=== PATIENT | female | born 1990 | race Caucasian/White ===

== ENCOUNTER 2024-12-05 00:57 | Day surgery (SDC) | payer OTHER, SELFPAY ==
[2024-11-28 10:56] VITALS: BMI 26.9
--- NOTE | 2024-11-28 11:05 | PC.NURSE ---
Report to the Outpatient Waiting Room, entrance under the green pavilion located off [facility], at time _1000am on date _12/05/24 . Planned Procedure Time: __1200pm .? Time changes happen often and if your time is changed the preop area will call you the afternoon before. - You and your visitor will be asked to self-screen and do not enter if you have any COVID symptoms. Please call surgeon if you need to reschedule. - A mask is optional within the hospital at this time. Patients may have clear liquids (water, carbonated beverages, clear teas, apple juice) until 3 hours prior to surgery with a maximum of 20 ounces. - No food from midnight until time of surgery and no smoking, or chewing tobacco (or any form of nicotine). No chewing gum, candy or mints. (0900am) Take only the following medications with a SIP of water on the morning of surgery: ____None DO NOT STOP ANY OF YOUR OTHER PRESCRIPTION MEDICATIONS PRIOR TO SURGERY EXCEPT THE FOLLOWING Hold all vitamins and supplements for 3 days per anesthesiologist. Medications to discontinue per physician None Date to take last dose__None Please no make-up, nail korean, hairspray, perfume, deodorant, or body powder the day of surgery.? No jewelry (including any body piercings) or valuables the day of surgery, leave them at home.? Please take a shower or bath the night before, or the morning of, surgery with an antibacterial soap.? Wear comfortable, loose fitting clothing.? - Jewelry must be removed prior to entering the operating room.? Rings and piercings that are not removed may be cut off. - The hospital will not accept responsibility for valuables.? - Please leave all valuables, including medications, at home the day of surgery. If you are going home after surgery, a licensed feeder driver must drive you home.? - NO public transportation without another adult if you receive anesthesia. - We recommend that an adult stay with you for 24 hours following discharge. - We also recommend that you do not drive, make important decision, drink alcoholic beverages, or take any drugs that were not prescribed by your health care provider for at least 24 hours after your discharge time. Follow any additional instructions given to you from your surgeon. Pt cannot come prior to get Testing done ahead, so will get DOS due to scheduling and pt lives far away- pt understands the risk . Telephone instructions given to __Patient and asked if any additional questions and then verbalized understanding. Patient advised to call surgeon office or pre surgery nurse liaison [phone] if any additional questions.
--- OUTSIDE RECORDS SUMMARY | 2024-12-05 01:04 | XMS_ITS | Data Portability ---
Author Organization [facility], [address] ([place]) Address [address] [place] [address] Care Team Providers Care Chemical Process Engineer Name Role Phone JUAN DANIEL OROZCO Primary Care Provider [phone] LEONIDAS OROZCO Referring Provider ESAU ARROYO Director Of Contracts Assessment Encounter Date Assessment Date Assessment LastModified by Organization Details LastModified Time 05/30/2024 05/30/2024 I had a long discussion with Naheed. I reviewed her lab work over the past few years and we trended her LFTs. Her transaminases were elevated back in 2019 and they had improved somewhat in the middle and now at the most recent check they are slightly increased from baseline again. The cause of her LFT increase is unclear. She had a follow-up FibroScan today, which again shows normal numbers. She does not drink heavily and she has actually lost weight and her BMI is quite good. The cause of her LFT elevation is unclear. We talked about possible medications, herbal drugs and even personal care products that could possibly be causing this. She is going to work on ensuring that there is no such exposure to her that could cause elevated LFTs. We will recheck numbers in about a months time and if they continue to go up, we might do some repeat testing to rule out autoimmune liver disease. The patient voiced understanding and was in agreement with the plan. [email or web address] Not available 05/31/2024 11:01:20 08/02/2024 08/02/2024 Flu test negative today, but her son has confirmed influenza A currently. Her symptoms just hit last night. Discussed Tamiflu as a strategy for decreasing course of illness and prevention. She would like to proceed. Will plan treatment dosing as my suspicion for flu A is high. F/u if any worsening / trouble breathing/ high fevers, etc. Patient voices understanding and agreement with the plan. [email or web address] Not available 08/02/2024 16:58:33 10/17/2024 10/17/2024 Elevated liver enzymes of unknown etiology - Initially identified in 2019 on insurance screening labs. GI on-board since then, has had normal FibroScan & lab work ups. Her BMI is 25.9. After her last visit she had some repeat testing for autoimmune liver disease which again came back normal. No known toxin exposures. Her only routine medication is her Mirena. She rarely drinks alcohol. We will arrange hepatology consult at [facility] for a second opinion regarding potential diagnoses/ add'l work up and guidance on future monitoring. Night sweats - She describes nightly drenching night sweats for several years. She mentions now just in case this correlates with any of her underlying conditions (liver and chronic thyroid goiter). I recommended we do a CBC, CRP, HIV, A1c tests. To help more definitively rule out thryoid dysfunction, will repeat a TSH along with a free and total T4, T3. Overweight - Phentermine renewed at 30 mg dose. Next steps pending the results of the above workup and hepatology referral. Patient voices understanding and agreement with the plan. [email or web address] Not available 10/18/2024 18:15:45 Plan of Treatment Reminders Order Date Submit Date Provider Last Modified By Organization Details Last Modified Time Details Appointments None recorded. Lab CBC w/ auto diff 2024 025 [facility], [address] [place] [address], [id number], 15:11:49 TSH, ultra-sensi tive, serum 2024 025 [facility], [address] [place] [address], [id number], 15:38:14 T4, free, serum 2024 025 [facility], [address] [place] [address], [id number], 5 15:38:16 C-reactive protein, quantitativ e, serum or plasma 2024 025 [facility], [address] [place] [address], [id number], 16:18:58 HIV 1+2 Ab + HIV 1 p24 Ag, panel, IA, serum or plasma 2024 025 [facility], [address] [place] [address], 45386, 16:02:33 hemoglobin A1c + average glucose, QN, blood 2024 025 [facility], [address] [place] [address], 44192, 15:32:28 T4, total, serum 2024 025 [facility], [address] [place] [address], 71649, 17:03:51 T3, total, serum 2024 025 [facility], [address] [place] [address], 40989, 09:52:37 CMP, serum or plasma 2024 025 [facility], [address] [place] [address], [id number], 5 15:49:24 influenza (A+B) RNA, qualitative , PCR [email or web address] [place] [address] Laboratory, [address] [place] [address], [id number], 5 11:42:30 Referral hepatologis t referral 2024 025 [email or web address] Not available 19:31:40 Procedures None recorded. Surgeries None recorded. Imaging None recorded. Medication Orders phentermine 30 mg capsule 2024 025 [email or web address] [id number], [address] [place], [address], 18:10:37 Tamiflu 75 mg capsule 2024 025 [id number], [address] [place], [address], 18:38:24 Patient TargetsNo targets recorded. Patient InstructionsNo instructions recorded. 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 Referral for Li francisco enzymes level above reference range Referring Physician: Kayy Guadarrama, Family Medicine, Encounter Date: 10/17/2024 Results Created Date Observation Date Name Description Value Unit Range Abnormal Flag Note LastModifiedBy Organization Detail LastModifiedTime 08/02/19 25 08/02/2024 influ arcelia (A+B) RNA, quali tativ e, PCR influenza A and B Not Available [facility] [address] [place] [address], [id number], 08/02/2024 16:59:21 08/02/19 25 08/02/2024 influ arcelia (A+B) RNA, quali tativ e, PCR influenza A NEGATI VE negati ve Not Available [facility] [address] [place] [address], [id number], 08/02/2024 16:59:21 08/02/19 25 08/02/2024 influ arcelia (A+B) RNA, quali tativ e, PCR influenza B NEGATI VE negati ve Influ arcelia A/B assay perfo rmed on the ID NOW Instr ument via rapid molec ular in vitro diagn ostic appro ach utili zing an isoth ermal nucle ic acid ampli ficat ion techn ique for the quali tativ e detec tion and discr imina tion of influ arcelia A and B. It is inten ded for use as an aid in the diffe renti al diagn osis of influ arcelia A and B viral infec tions in human s in conju nctio n with clini buddy and epide miolo gical risk facto rs. The assay is not inten ded to detec t the prese nce of influ arcelia C virus . Rapid influ arcelia diagn ostic testi ng (RIDT ) is not inten ded to be used as the sole deter minin g facto r for Influ arcelia diagn osis. Negat lyla resul ts do not precl ude infec tion with influ arcelia virus and shoul d not be the sole basis of a patie nt treat ment decis ion. False negat lyla resul ts may occur if a speci men is impro perly colle cted, trans porte d/casas dled or inade quate level s of virus es are prese nt in the speci men. At a low frequ ency, clini buddy sampl es can conta in inhib itors that may gener ate inval id resul ts. Site to site inval id rates may vary and repea t testi ng shoul d be consi dered at the clini cia discr etion . Not Available [facility] [address] [place] [address], [id number], 08/02/2024 16:59:21 08/07/19 25 08/08/2024 hepat ic funct ion panel , serum liver function panel Not Available [facility] [address] [place] [address], [id number], 08/08/2024 14:56:03 08/07/19 25 08/08/2024 hepat ic funct ion panel , serum albumin 4.6 g/dL 3.5-5. 3 Not Available [facility] [address] [place] [address], 56588, 08/08/2024 14:56:03 08/07/19 25 08/08/2024 hepat ic funct ion panel , serum direct bilirubin 0.2 mg/dL 0.1-0. 5 Not Available [facility] [address] [place] [address], 75824, 08/08/2024 14:56:03 08/07/1908/08/2024 hepat ic funct ion panel , serum indirect bilirubin 0.4 mg/dL 0.1-0. 6 Not Available [facility] [address] [place] [address], 45239, 08/08/2024 14:56:03 08/07/19 25 08/08/2024 hepat ic funct ion panel , serum total bilirubin 0.6 mg/dL 0.2-1. 2 Not Available [facility] [address] [place] [address], 16495, 08/08/2024 14:56:03 08/07/19 25 08/08/2024 hepat ic funct ion panel , serum ALP 86 U/L 44 - 127 Not Available [facility] [address] [place] [address], 06902, 08/08/2024 14:56:03 08/07/19 25 08/08/2024 hepat ic funct ion panel , serum AST (SGOT) 103 U/L 10-40 high Not Available [facility] [address] [place] [address], 23877, 08/08/2024 14:56:03 08/07/19 25 08/08/2024 hepat ic funct ion panel , serum ALT (SGPT) 157 U/L 8-35 high Not Available [facility] [address] [place] [address], 63981, 08/08/2024 14:56:03 08/07/19 25 08/08/2024 hepat ic funct ion panel , serum total protein 6.9 g/dL 6.4-8. 3 Not Available [facility] [address] [place] [address], 09424, 08/08/2024 14:56:03 08/21/19 25 08/21/2024 gamma -glut amyl trans feras e (ggt) , serum GGT Not Available [facility] [address] [place] [address], 38582, 08/21/2024 15:47:01 08/21/19 25 08/21/2024 gamma -glut amyl trans feras e (ggt) , serum GGT 47 U/L <7-50 Not Available [facility] [address] [place] [address], 20478, 08/21/2024 15:47:01 08/21/19 25 08/21/2024 hepat ic funct ion panel , serum liver function panel Not Available [facility] [address] [place] [address], 96704, 08/21/2024 15:49:46 08/21/19 25 08/21/2024 hepat ic funct ion panel , serum albumin 4.6 g/dL 3.5-5. 3 Not Available [facility] [address] [place] [address], 07391, 08/21/2024 15:49:46 08/21/19 25 08/21/2024 hepat ic funct ion panel , serum direct bilirubin 0.2 mg/dL 0.1-0. 5 Not Available [facility] [address] [place] [address], 80839, 08/21/2024 15:49:46 08/21/1908/21/2024 hepat ic funct ion panel , serum indirect bilirubin 0.3 mg/dL 0.1-0. 6 Not Available [facility] [address] [place] [address], 73925, 08/21/2024 15:49:46 08/21/19 25 08/21/2024 hepat ic funct ion panel , serum total bilirubin 0.5 mg/dL 0.2-1. 2 Not Available [facility] [address] [place] [address], 03346, 08/21/2024 15:49:46 08/21/19 25 08/21/2024 hepat ic funct ion panel , serum ALP 73 U/L 44 - 127 Not Available [facility] [address] [place] [address], 05786, 08/21/2024 15:49:46 08/21/19 25 08/21/2024 hepat ic funct ion panel , serum AST (SGOT) 45 U/L 10-40 high Not Available [facility] [address] [place] [address], 35143, 08/21/2024 15:49:46 08/21/19 25 08/21/2024 hepat ic funct ion panel , serum ALT (SGPT) 68 U/L 8-35 high Not Available [facility] [address] [place] [address], 01787, 08/21/2024 15:49:46 08/21/19 25 08/21/2024 hepat ic funct ion panel , serum total protein 6.7 g/dL 6.4-8. 3 Not Available [facility] [address] [place] [address], 38615, 08/21/2024 15:49:46 08/21/19 25 08/22/2024 alpha -1-an titry psin (aat) , QN, serum nxqii-0-sufn trypsin 121 mg/dL 100-18 8 Not Available [facility] [address] [place] [address], 01476, 08/22/2024 13:39:27 08/21/1908/22/2024 cerul oplas min, serum ceruloplasmi n 20.1 mg/dL 19.0-3 9.0 Not Available [facility] [address] [place] [address], 34775, 08/22/2024 13:39:29 08/21/19 25 08/22/2024 actin michel h muscl e IgG Ab, quant , serum smooth muscle (actin) Ab 9 units 0-19 Negat lyla 0 - 19 Weak posit lyla 20 - 30 Moder ate to stron g posit lyla >30 . Actin Antib odies are found in 52-85 % of patie nts with autoi mmune hepat itis or chron ic activ e hepat itis and in 22% of patie nts with prima ry bilia ry cirrh osis. Not Available [facility] [address] [place] [address], 22894, 08/22/2024 14:39:01 08/21/1908/22/2024 mitoc hondr ia Ab, QN, serum mitochondria M2 IgG Ab <20.0 units 0.0-20 .0 Negat lyla 0.0 - 20.0 Equiv ocal 20.1 - 24.9 Posit lyla >24.9 . Mitoc hondr ial (M2) Antib odies are found in 90-96 % of patie nts with prima ry bilia ry cirrh osis. Not Available [facility] [address] [place] [address], [id number], 08/22/2024 14:39:04 08/21/19 25 08/23/2024 JESSEE (anti nucle ar antib odies ) scree n, serum JESSEE screen NEGATI VE negati ve Perfo rmed by Bio-R ad enzym e immun oassa y Not Available [facility] [address] [place] [address], 89670, 08/23/2024 15:00:47 10/20/1910/19/2024 CBC w/ auto diff CBC with differential Not Available [facility] [address] [place] [address], 77877, 10/19/2024 15:11:49 10/20/1910/19/2024 CBC w/ auto diff WBC 3.3 K/uL 3.8-11 .2 low Not Available [facility] [address] [place] [address], 03150, 10/19/2024 15:11:49 10/20/1910/19/2024 CBC w/ auto diff RBC 4.46 M/uL 3.92-5 .10 Not Available [facility] [address] [place] [address], 09148, 10/19/2024 15:11:49 10/20/1910/19/2024 CBC w/ auto diff HGB 13.2 g/dL 11.8-1 5.3 Not Available [facility] [address] [place] [address], 87577, 10/19/2024 15:11:49 10/20/1910/19/2024 CBC w/ auto diff HCT 37.6 % 36.5-4 4.8 Not Available [facility] [address] [place] [address], 45050, 10/19/2024 15:11:49 10/20/1910/19/2024 CBC w/ auto diff MCV 84.3 fL 80.0-9 9.0 Not Available [facility] [address] [place] [address], 50917, 10/19/2024 15:11:49 10/20/1910/19/2024 CBC w/ auto diff MCH 29.6 pg 25.5-3 3.6 Not Available [facility] [address] [place] [address], 83079, 10/19/2024 15:11:49 10/20/1910/19/2024 CBC w/ auto diff MCHC 35.1 g/dL 32.0-3 6.0 Not Available [facility] [address] [place] [address], 51102, 10/19/2024 15:11:49 10/20/1910/19/2024 CBC w/ auto diff RDW-SD 36.2 fL 35.1 - 46.3 Not Available [facility] [address] [place] [address], 48264, 10/19/2024 15:11:49 10/20/19 25 10/19/2024 CBC w/ auto diff plt 275 K/uL 130-40 0 Not Available [facility] [address] [place] [address], 87297, 10/19/2024 15:11:49 10/20/1910/19/2024 CBC w/ auto diff MPV 9.1 fL 9.3-12 .8 low Not Available [facility] [address] [place] [address], 69542, 10/19/2024 15:11:49 10/20/19 25 10/19/2024 CBC w/ auto diff kane% 39.1 % not estab Not Available [facility] [address] [place] [address], 82036, 10/19/2024 15:11:49 10/20/1910/19/2024 CBC w/ auto diff lym% 53.0 % not estab Not Available [facility] [address] [place] [address], 46724, 10/19/2024 15:11:49 10/20/1910/19/2024 CBC w/ auto diff mono% 5.2 % not estab Not Available [facility] [address] [place] [address], 65511, 10/19/2024 15:11:49 10/20/1910/19/2024 CBC w/ auto diff eos% 2.1 % not estab Not Available [facility] [address] [place] [address], [id number], 10/19/2024 15:11:49 10/20/1910/19/2024 CBC w/ auto diff baso% 0.3 % not estab Not Available [facility] [address] [place] [address], 44257, 10/19/2024 15:11:49 10/20/1910/19/2024 CBC w/ auto diff abs kane 1.3 K/uL 1.8-7. 5 low Not Available [facility] [address] [place] [address], 53666, 10/19/2024 15:11:49 10/20/1910/19/2024 CBC w/ auto diff abs lym 1.8 K/uL 1.1-3. 3 Not Available [facility] [address] [place] [address], 62630, 10/19/2024 15:11:49 10/20/1910/19/2024 CBC w/ auto diff abs mono 0.2 K/uL 0.1-1. 0 Not Available [facility] [address] [place] [address], 29632, 10/19/2024 15:11:49 10/20/1910/19/2024 CBC w/ auto diff abs eos 0.1 K/uL 0.0-0. 7 Not Available [facility] [address] [place] [address], 43709, 10/19/2024 15:11:49 10/20/1910/19/2024 CBC w/ auto diff abs baso 0.0 K/uL 0.0-0. 2 Not Available [facility] [address] [place] [address], 04650, 10/19/2024 15:11:49 10/20/1910/19/2024 CBC w/ auto diff imm. gran % 0.3 % 0-5 Not Available [facility] [address] [place] [address], 26176, 10/19/2024 15:11:49 10/20/1910/19/2024 CBC w/ auto diff NRBC % 0.0 % 0.0-0. 2 Not Available [facility] [address] [place] [address], 44064, 10/19/2024 15:11:49 10/20/1910/19/2024 hemog lobin A1c + avera ge gluco se, QN, blood hemoglobin A1C Not Available [facility] [address] [place] [address], 39765, 10/19/2024 15:32:28 10/20/1910/19/2024 hemog lobin A1c + avera ge gluco se, QN, blood HGB A1C 4.8 %_A1C 4.3 - 5.6 Not Available [facility] [address] [place] [address], 20688, 10/19/2024 15:32:28 10/20/1910/19/2024 hemog lobin A1c + avera ge gluco se, QN, blood estimated average glucose 91 mg/dL Not Available [facility] [address] [place] [address], 99112, 10/19/2024 15:32:28 10/20/1910/19/2024 TSH, ultra -sens itive , serum TSH3 1.474 uIU/m L .340-5 .600 Not Available [facility] [address] [place] [address], 49847, 10/19/2024 15:38:13 10/20/1910/19/2024 T4, free, serum free T4 1.20 NG/dL 0.58-1 .64 Speci mens that conta in high level s of bioti n may cause false ly high Free T4 resul ts. Not Available [facility] [address] [place] [address], 90195, 10/19/2024 15:38:16 10/20/1910/19/2024 CMP, serum or plasm a comp. met. panel Not Available [facility] [address] [place] [address], 44761, 10/19/2024 15:49:24 10/20/1910/19/2024 CMP, serum or plasm a sodium 138 mmol/ L 136-14 6 Not Available [facility] [address] [place] [address], 35980, 10/19/2024 15:49:24 10/20/1910/19/2024 CMP, serum or plasm a potassium 4.3 mmol/ L 3.5-5. 1 Not Available [facility] [address] [place] [address], 56871, 10/19/2024 15:49:24 10/20/1910/19/2024 CMP, serum or plasm a chloride 105 mmol/ L 98-110 Not Available [facility] [address] [place] [address], 78418, 10/19/2024 15:49:24 10/20/1910/19/2024 CMP, serum or plasm a CO2 28 mEq/L 20-32 Not Available [facility] [address] [place] [address], 20432, 10/19/2024 15:49:24 10/20/1910/19/2024 CMP, serum or plasm a anion gap 9 mmol/ L 10-22 low Not Available [facility] [address] [place] [address], 03443, 10/19/2024 15:49:24 10/20/1910/19/2024 CMP, serum or plasm a glucose 108 mg/dL 70-100 high Not Available [facility] [address] [place] [address], 86166, 10/19/2024 15:49:24 10/20/1910/19/2024 CMP, serum or plasm a calcium 9.2 mg/dL 8.4-10 .4 Not Available [facility] [address] [place] [address], 18582, 10/19/2024 15:49:24 10/20/1910/19/2024 CMP, serum or plasm a total protein 6.9 g/dL 6.4-8. 3 Not Available [facility] [address] [place] [address], 06777, 10/19/2024 15:49:24 10/20/1910/19/2024 CMP, serum or plasm a albumin 4.4 g/dL 3.5-5. 3 Not Available [facility] [address] [place] [address], 23088, 10/19/2024 15:49:24 10/20/19 25 10/19/2024 CMP, serum or plasm a ALP 70 U/L 44 - 127 Not Available [facility] [address] [place] [address], 37590, 10/19/2024 15:49:24 10/20/1910/19/2024 CMP, serum or plasm a AST (SGOT) 43 U/L 10-40 high Not Available [facility] [address] [place] [address], 36988, 10/19/2024 15:49:24 10/20/1910/19/2024 CMP, serum or plasm a total bilirubin 0.9 mg/dL 0.2-1. 2 Not Available [facility] [address] [place] [address], 75601, 10/19/2024 15:49:24 10/20/1910/19/2024 CMP, serum or plasm a ALT (SGPT) 79 U/L 8-35 high Not Available [facility] [address] [place] [address], 97379, 10/19/2024 15:49:24 10/20/1910/19/2024 CMP, serum or plasm a BUN 11 mg/dL 7-21 Not Available [facility] [address] [place] [address], 87686, 10/19/2024 15:49:24 10/20/1910/19/2024 CMP, serum or plasm a creatinine 0.8 mg/dL 0.7-1. 3 Not Available [facility] [address] [place] [address], 25438, 10/19/2024 15:49:24 10/20/1910/19/2024 CMP, serum or plasm a CKD-epi GFR 98 eGFR was calcu lated using the 2020 CKD-E PI equat ion. (Steam Engineer lisa Kidne y Disea se has an eGFR less than 60 mL/mi n/1.7 3mm for a perio d of three month s or more. ) This calcu latio n has not been valid ated for patie nt ages <18 or >90 years old. Not Available [facility] [address] [place] [address], 56380, 10/19/2024 15:49:24 10/20/1910/19/2024 HIV 1+2 Ab + HIV 1 p24 Ag, panel , IA, serum or plasm a HIV Ag/Ab 1-2 combo NONREA CTIVE nonrea ctive Not Available [facility] [address] [place] [address], 95951, 10/19/2024 16:02:33 10/20/1910/19/2024 C-geoffrey ctive prote in, quant itati ve, serum or plasm a CRP Not Available [facility] [address] [place] [address], 32171, 10/19/2024 16:18:58 10/20/1910/19/2024 C-geoffrey ctive prote in, quant itati ve, serum or plasm a CRP <0.5 mg/dL <0.4-0 .5 Not Available [facility] [address] [place] [address], 58319, 10/19/2024 16:18:58 10/20/19 25 10/20/2024 T3, total , serum total T3 119 NG/dL 71-180 Not Available [facility] [address] [place] [address], 13790, 10/20/2024 09:52:37 10/20/1910/20/2024 T4, total , serum T4, total 8.0 ug/dL 6.1-12 .2 Due to possi ble low value s in pregn ant patie nts and those on contr ol medic ation , it is recom radha d that these patie nts be teste d also for TSH to evalu ate thyro id metab olic statu s Not Available [facility] [address] [place] [address], 79798, 10/20/2024 17:03:50 11/07/1911/06/2024 CBC w/ auto diff CBC with differential Not Available [facility] [address] [place] [address], 95816, 11/06/2024 15:25:13 11/07/19 25 11/06/2024 CBC w/ auto diff WBC 4.4 K/uL 3.8-11 .2 Not Available [facility] [address] [place] [address], 49042, 11/06/2024 15:25:13 11/07/19 25 11/06/2024 CBC w/ auto diff RBC 4.19 M/uL 3.92-5 .10 Not Available [facility] [address] [place] [address], 54656, 11/06/2024 15:25:13 11/07/19 25 11/06/2024 CBC w/ auto diff HGB 12.7 g/dL 11.8-1 5.3 Not Available [facility] [address] [place] [address], 18812, 11/06/2024 15:25:13 11/07/19 25 11/06/2024 CBC w/ auto diff HCT 35.6 % 36.5-4 4.8 low Not Available [facility] [address] [place] [address], 82729, 11/06/2024 15:25:13 11/07/19 25 11/06/2024 CBC w/ auto diff MCV 85.0 fL 80.0-9 9.0 Not Available [facility] [address] [place] [address], 59475, 11/06/2024 15:25:13 11/07/19 25 11/06/2024 CBC w/ auto diff MCH 30.3 pg 25.5-3 3.6 Not Available [facility] [address] [place] [address], 54608, 11/06/2024 15:25:13 11/07/19 25 11/06/2024 CBC w/ auto diff MCHC 35.7 g/dL 32.0-3 6.0 Not Available [facility] [address] [place] [address], 92706, 11/06/2024 15:25:13 11/07/19 25 11/06/2024 CBC w/ auto diff RDW-SD 36.9 fL 35.1 - 46.3 Not Available [facility] [address] [place] [address], 76566, 11/06/2024 15:25:13 11/07/19 25 11/06/2024 CBC w/ auto diff plt 242 K/uL 130-40 0 Not Available [facility] [address] [place] [address], 15144, 11/06/2024 15:25:13 11/07/19 25 11/06/2024 CBC w/ auto diff MPV 9.4 fL 9.3-12 .8 Not Available [facility] [address] [place] [address], 74957, 11/06/2024 15:25:13 11/07/19 25 11/06/2024 CBC w/ auto diff kane% 38.0 % not estab Not Available [facility] [address] [place] [address], [id number], 11/06/2024 15:25:13 11/07/19 25 11/06/2024 CBC w/ auto diff lym% 51.2 % not estab Not Available [facility] [address] [place] [address], [id number], 11/06/2024 15:25:13 11/07/19 25 11/06/2024 CBC w/ auto diff mono% 7.9 % not estab Not Available [facility] [address] [place] [address], [id number], 11/06/2024 15:25:13 11/07/19 25 11/06/2024 CBC w/ auto diff eos% 2.5 % not estab Not Available [facility] [address] [place] [address], [id number], 11/06/2024 15:25:13 11/07/19 25 11/06/2024 CBC w/ auto diff baso% 0.2 % not estab Not Available [facility] [address] [place] [address], [id number], 11/06/2024 15:25:13 11/07/19 25 11/06/2024 CBC w/ auto diff abs kane 1.7 K/uL 1.8-7. 5 low Not Available [facility] [address] [place] [address], [id number], 11/06/2024 15:25:13 11/07/19 25 11/06/2024 CBC w/ auto diff abs lym 2.3 K/uL 1.1-3. 3 Not Available [facility] [address] [place] [address], [id number], 11/06/2024 15:25:13 11/07/19 25 11/06/2024 CBC w/ auto diff abs mono 0.4 K/uL 0.1-1. 0 Not Available [facility] [address] [place] [address], [id number], 11/06/2024 15:25:13 11/07/19 25 11/06/2024 CBC w/ auto diff abs eos 0.1 K/uL 0.0-0. 7 Not Available [facility] [address] [place] [address], [id number], 11/06/2024 15:25:13 11/07/19 25 11/06/2024 CBC w/ auto diff abs baso 0.0 K/uL 0.0-0. 2 Not Available [facility] [address] [place] [address], [id number], 11/06/2024 15:25:13 11/07/19 25 11/06/2024 CBC w/ auto diff imm. gran % 0.2 % 0-5 Not Available [facility] Onl y - [facility] [address] [place] [address], [id number], 11/06/2024 15:25:13 11/07/19 25 11/06/2024 CBC w/ auto diff NRBC % 0.0 % 0.0-0. 2 Not Available [facility] [address] [place] [address], [id number], 11/06/2024 15:25:13 08/08/19 25 08/03/2024 US, thyro id No observ ation record ed. [facility] - Radiology [address] [place], [address], 08/08/2024 10:21:57 Result Notes None recorded. Problems Name Problem SNOMED Code Status Onset Date Resolution Date Notes Provider Name and Address Organization Details Recorded Time Acute COVID-19 [id number] Completed 10/10/2024 home+ test 01/28/24 Kayy Guadarrama, POWER ENGINEER, HUMAN RELATIONS PROFESSOR [address] [place] [address], [phone], [place] [facility] 13:00:01 Non-toxi c multinod ular goiter 94464545 Active R. nodule by US '. ENT reviewed f/u US (largely stable), impressi on likely NOT parathyr oid nodule, rec'd repeat US in 1 yr. Stable on US , plan repeat 1yr. Juan Daniel Orozco MD [address] [place] [address], [phone], [facility] 5 06:44:15 Liver enzymes level above referenc e range [id number] Active insuranc e screeing labs; ALT 114, AST 75 w/ nmL GGT/ALP, US, Hep panel, CBC. GI impressi on probable fatty liver (fibrosc an unremark able). Mild elevatio n thereaft er. Fibrosca n nmL , and expanded liver labs (per GI) nmL . plan second opinion at [facility] (schedul ed ) Kayy Guadarrama APRN, HUMAN RELATIONS PROFESSOR [address] [place] [address], [phone], [facility] 5 16:10:03 Abnormal cervical Papanico laou smear 683631812 Active 2023 Colpo 06/2013 (for LSIL), then nmL Pap 02/2014. f/b Gyne Dr. Anne at [facility]. Kayy Guadarrama APRN, HUMAN RELATIONS PROFESSOR [address] [place] [address], [phone], [facility] 4 10:37:53 Recurren t herpes simplex labialis 616028724 Active 10/07/15 tx valcyclo vir as needed Juan Daniel Orozco MD [address] [place] [address], [phone], [facility] 5 06:40:23 Contrace ption care manageme nt Active f/b Gyne in [facility] Mirena IUD placed . Juan Daniel Orozco MD [address] [place], [phone], [facility] 5 06:50:25 Night sweats 23144528 Active 2024 low WBC on labs, f/b nmL repeat . Neg HIV test, thyroid testing nmL. Kayy Guadarrama APRN, HUMAN RELATIONS PROFESSOR [address] [place] [address], [phone], [facility] 5 16:10:42 Overweig ht 019732944 Active 2024 start phenterm ine with intermit tent success. resume and increase to 30 mg dose. aKyy Guadarrama APRN, HUMAN RELATIONS PROFESSOR [address] [place] [address], [phone] 3, [facility] 5 15:10:38 Problem Notes Documentation Provider Name and Address Organization Details Recorded Time [facility] [address] [place] [phone] Naheed Champagne 34yo F 1990 #[id number] 05/31/2024 Swetha Orozco MD, Naheed Champagne was seen in our office today 05/30/2024, and a copy of that evaluation is enclosed. Thank you for allowing us to participate in the care of your patient. Please contact us with any questions. Sincerely, Electronically Signed by: ESAU ARROYO MD Encounter Reason/DateNone recorded 05/30/2024 - 02:00PM - [address] BoardsProblemsReviewed Problems Herpes labialis - Onset: 02/07/2024 - 10/07/15 tx valcyclovir as needed Recurrent herpes simplex labialis - Onset: 05/01/2024 Non-toxic multinodular goiter - Onset: 02/06/2024 - R. nodule by US ', stable . Endocrine ([facility] Dr. Velasquez) rec'd repeat US & TSH in 1yr & f/u there if abnml / changing. nmL TSH . Pt declines US . nmL TSH, slight increase in nodule size on US. repeat US w/ increased (isthmus) nodule size & recommended FNA. Tentatively plan for repeat US in - (as recommended by ENT), lost to f/u until where in most nodules stable, new nodule at posterior thyroid, may be external to & abutting vs part of thyroid (parathyroid nodule or lymph node). ENT reviewed images, thinks likely NOT parathyroid nodule, rec'd repeat US in 1 yr. Obesity - Onset: 02/07/2024 - start phentermine (if covered by insurance, would trzn to GLP1). Steatosis of liver - Onset: 05/30/2024 Abnormal cervical Papanicolaou smear - Onset: 02/07/2024 - Colpo 06/2013 (for LSIL), then nmL Pap 02/2014. f/b Gyne Dr. Anne at [place]. Acute COVID-19 - home+ test 01/28/24 Liver enzymes level above reference range - Onset: 02/07/2024 - 09/19/18 insurance screeing labs; ALT 114, AST 75. NmL GGT/ALP. NmL RUQ US, Hep panel, CBC. Con't elevation on repeats indicating GI consult. GI impression probable fatty liver, but 2019 US / fibroscan unremarkable, as well as unremarkable liver lab w/u. s/p f/u w/ GI for ongoing elevated LFTs (AST 54, ALT 92). US stable, liver bx vs q 6 mo LFT offered by GI, pt opted for q 6 mo LFTs. Next due . Liver enzymes outside reference range - Onset: 05/31/2024 Allergies PENICILLINS: Anaphylaxis - Reaction: Throat Swelling; Comment: Annotations: PAM (PAZ TRANSITIONED)JUAN DANIEL 26Aug2014 3:07PM at time of tooth abscess, which confounds clarity of reaction (allergy vs primary abscess cause); ; Medications NameDate Source azithromycin 250 mg tabletTAKE 2 TABLETS BY MOUTH FOR 1 DAY THEN TAKE 1 TABLET BY MOUTH DAILY FOR 4 DAYS05/28/23 filled surescripts azithromycin 500 mg tabletTAKE 1 TABLET BY MOUTH ONCE DAILY FOR 5 DAYS04/19/23 filled surescripts fluticasone propionate 50 mcg/actuation nasal spray,suspensionSPRAY 2 SPRAYS INTO EACH NOSTRIL EVERY DAY08/08/23 filled surescripts ofloxacin 0.3 % eye dropsINSTILL 2 DROPS INTO AFFECTED EYE 4 TIMES A DAY FOR 5 DAYS11/20/23 filled surescripts phentermine 15 mg capsuleTAKE 1 CAPSULE BY MOUTH EVERY DAY IN THE MORNING BEFORE USRUFSIOD96/12/24 filled surescripts valACYclovir 1 gram tabletTake 2 tablet(s) every 12 hours by oral route for 1 day.05/01/24 filled surescripts Family History Mother - Malignant tumor of breast - Family history of malignant neoplasm Maternal Grandmother - Family history of malignant neoplasm Father - Diabetes mellitus Social HistorySubstance UseDo you or have you ever smoked tobacco?: Never smokerWhat is your level of alcohol consumption?: OccasionalHow many times per week do you consume alcohol?: 1-2 times per weekDo you use any illicit or recreational drugs?: NoWhat was the date of your most recent tobacco screening?: 05/30/2024Education and OccupationAre you currently employed?: 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 Due for removal 2017., Type: Chronic Identified By: JUAN DANIEL OROZCO Last Edited: 30 Aug 2014 10:03AM ICD9 Code: V45.51 Last Reviewed Date: 20140830 SnomedCode: [id number] ICD10 Code: Z97.5 Never a smoker, Type: Chronic Last Edited: 26 Aug 2014 2:55PM Last Reviewed Date: 20140826 SnomedCode: 642214258 Caffeine use-2 cups/glasses per day, Identified By: Kath Villasenor Last Edited: 06 Aug 2023 7:02PM ICD9 Code: V49.89 OnSet Date: 20230806 Last Reviewed Date: 20230806 SnomedCode: 1000585115 ICD10 Code: Z78.9 Consumes alcohol-How many drinks at a time? 2, How often? 1 time per week, Identified By: Kath Villasenor Last Edited: 06 Aug 2023 7:02PM ICD9 Code: V49.89 OnSet Date: 20230806 Last Reviewed Date: 20230806 SnomedCode: [id number] ICD10 Code: Z78.9 Does not exercise, Identified By: Kath Villasenor Last Edited: 06 Aug 2023 7:02PM ICD9 Code: V69.0 OnSet Date: 20230806 Last Reviewed Date: 20230806 SnomedCode: 020543231 ICD10 Code: Z72.3 IUD (intrauterine device) in place-Mirena IUD placed 2018 (by [facility])., Type: Chronic Identified By: JUAN DANIEL OROZCO Last Edited: 08 Aug 2023 4:59PM ICD9 Code: V45.51 Last Reviewed Date: 20230808 SnomedCode: 218528319 ICD10 Code: Z97.5 Never a smoker, Last Edited: 06 Aug 2023 7:02PM OnSet Date: 20230806 Last Reviewed Date: 20230806 SnomedCode: 808892649 No illicit drug use, Identified By: Health Note, ADPVendor Last Edited: 06 Aug 2023 7:02PM OnSet Date: 20230806 Last Reviewed Date: 20230806 SnomedCode: 949596170 Surgical HistoryNone recordedAdditional HistoryNone recordedHistory of Present IllnessNone recordedReview of SystemsNone recordedPhysical ExamNone recordedProcedure DocumentationSC Fibroscan:[place] Fibroscan Intake Ordering Physician: Dr. Arroyo Roof Mechanic Name: Dianelys Shannon Probe: M+ Clinical Information: NPO> 3 Hours? Yes Alcohol in the last 24 hours No Body Mass Index: 24.6 Lab Tests: AST:60 ALT:103 Tbili:0.6 Alk P:79 Platelets:286 Endoscopy Date: Colorectal Cancer Screening Up to Date? Adenomatus Polyps? Last colonoscopy date: Next colonoscopy date: Next EGD date: Findings: Fibrosis Assessment: Median Liver Stiffness Score: 3.3kPa IQR to Median Radio: 9% Liver Fat (Steatosis) Estimation: CAP of _163_ dB/m Impressions:Discussed with patient in the office, FibroScan numbers are normal Assessment/Plan1.Fatty fablpF23.0: Fatty (change of) liver, not elsewhere classified Return to Office Patient will return to the office as needed Kayy Guadarrama, POWER ENGINEER, HUMAN RELATIONS PROFESSOR [address] [place] [address], [phone], [place] [facility] 05/31/2024 11:42:53 [facility] [address] [place] [phone] Naheed Champagne 34yo F 1990 #[id number] 06/04/2024 Swetha Orozco MD, Naheed Champagne was seen in our office today 05/30/2024, and a copy of that evaluation is enclosed. Thank you for allowing us to participate in the care of your patient. Please contact us with any questions. Sincerely, Electronically Signed by: ESAU ARROYO MD Encounter Reason/Date Fibroscan/Fatty Liver 05/30/2024 - 02:30PM - [address] [facility] ([place])ProblemsReviewed Problems Herpes labialis - Onset: 02/07/2024 - 10/07/15 tx valcyclovir as needed Recurrent herpes simplex labialis - Onset: 05/01/2024 Non-toxic multinodular goiter - Onset: 02/06/2024 - R. nodule by US , stable . Endocrine ([facility] Dr. Velasquez) rec'd repeat US & TSH in 1yr & f/u there if abnml / changing. nmL TSH . Pt declines US . nmL TSH, slight increase in nodule size on US. repeat US w/ increased (isthmus) nodule size & recommended FNA. Tentatively plan for repeat US in - (as recommended by ENT), lost to f/u until where in most nodules stable, new nodule at posterior thyroid, may be external to & abutting vs part of thyroid (parathyroid nodule or lymph node). ENT reviewed images, thinks likely NOT parathyroid nodule, rec'd repeat US in 1 yr. Obesity - Onset: 02/07/2024 - start phentermine (if covered by insurance, would trzn to GLP1). Steatosis of liver - Onset: 05/30/2024 Abnormal cervical Papanicolaou smear - Onset: 02/07/2024 - Colpo 06/2013 (for LSIL), then nmL Pap 02/2014. f/b Gyne Dr. Anne at [place]. Acute COVID-19 - home+ test 01/28/24 Liver enzymes level above reference range - Onset: 02/07/2024 - 09/19/18 insurance screeing labs; ALT 114, AST 75. NmL GGT/ALP. NmL RUQ US, Hep panel, CBC. Con't elevation on repeats indicating GI consult. GI impression probable fatty liver, but 2019 US / fibroscan unremarkable, as well as unremarkable liver lab w/u. s/p f/u w/ GI for ongoing elevated LFTs (AST 54, ALT 92). US stable, liver bx vs q 6 mo LFT offered by GI, pt opted for q 6 mo LFTs. Next due . Liver enzymes outside reference range - Onset: 05/31/2024 Allergies Reviewed Allergies PENICILLINS: Anaphylaxis - Reaction: Throat Swelling; Comment: Annotations: PAM (PAZ TRANSITIONED), JUAN DANIEL 26Aug2014 3:07PM at time of tooth abscess, which confounds clarity of reaction (allergy vs primary abscess cause); ; Medications Reviewed Medications NameDate Source azithromycin 250 mg tabletTAKE 2 TABLETS BY MOUTH FOR 1 DAY THEN TAKE 1 TABLET BY MOUTH DAILY FOR 4 DAYS05/28/23 filled surescripts azithromycin 500 mg tabletTAKE 1 TABLET BY MOUTH ONCE DAILY FOR 5 DAYS04/19/23 filled surescripts fluticasone propionate 50 mcg/actuation nasal spray,suspensionSPRAY 2 SPRAYS INTO EACH NOSTRIL EVERY DAY08/08/23 filled surescripts ofloxacin 0.3 % eye dropsINSTILL 2 DROPS INTO AFFECTED EYE 4 TIMES A DAY FOR 5 DAYS11/20/23 filled surescripts phentermine 15 mg capsuleTAKE 1 CAPSULE BY MOUTH EVERY DAY IN THE MORNING BEFORE PNTQFLPBN20/12/24 filled surescripts valACYclovir 1 gram tabletTake 2 tablet(s) every 12 hours by oral route for 1 day.05/01/24 filled surescripts Family HistoryReviewed Family History Mother - Malignant tumor of breast - Family history of malignant neoplasm Maternal Grandmother - Family history of malignant neoplasm Father - Diabetes mellitus Social HistoryReviewed Social History Substance UseDo you or have you ever smoked tobacco?: Never smokerWhat is your level of alcohol consumption?: OccasionalHow many times per week do you consume alcohol?: 1-2 times per weekDo you use any illicit or recreational drugs?: NoWhat was the date of your most recent tobacco screening?: 05/30/2024Education and OccupationAre you currently employed?: 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 Due for removal 2017., Type: Chronic Identified By: JUAN DANIEL OROZCO Last Edited: 30 Aug 2014 10:03AM ICD9 Code: V45.51 Last Reviewed Date: 20140830 SnomedCode: [id number] ICD10 Code: Z97.5 Never a smoker, Type: Chronic Last Edited: 26 Aug 2014 2:55PM Last Reviewed Date: 20140826 SnomedCode: 754657873 Caffeine use-2 cups/glasses per day, Identified By: Health Kath Hong Last Edited: 06 Aug 2023 7:02PM ICD9 Code: V49.89 OnSet Date: 20230806 Last Reviewed Date: 20230806 SnomedCode: 8965971494 ICD10 Code: Z78.9 Consumes alcohol-How many drinks at a time? 2, How often? 1 time per week, Identified By: Kath Villasenor Last Edited: 06 Aug 2023 7:02PM ICD9 Code: V49.89 OnSet Date: 20230806 Last Reviewed Date: 20230806 SnomedCode: 606480 ICD10 Code: Z78.9 Does not exercise, Identified By: Kath Villasenor Last Edited: 06 Aug 2023 7:02PM ICD9 Code: V69.0 OnSet Date: 20230806 Last Reviewed Date: 20230806 SnomedCode: 366180851 ICD10 Code: Z72.3 IUD (intrauterine device) in place-Mirena IUD placed 2018 (by [facility]ne)., Type: Chronic Identified By: JUAN DANIEL OROZCO Last Edited: 08 Aug 2023 4:59PM ICD9 Code: V45.51 Last Reviewed Date: 20230808 SnomedCode: 708098357 ICD10 Code: Z97.5 Never a smoker, Last Edited: 06 Aug 2023 7:02PM OnSet Date: 20230806 Last Reviewed Date: 20230806 SnomedCode: 882712103 No illicit drug use, Identified By: Kath Villasenor Last Edited: 06 Aug 2023 7:02PM OnSet Date: 20230806 Last Reviewed Date: 20230806 SnomedCode: 901913796 Surgical HistoryNone recordedAdditional HistoryNone recordedHistory of Present IllnessNikki is a pleasant 34-year-old female who has been followed in the GI Clinic for elevated LFTs. She was first seen in 2019 and at that time, she had lab work done to rule out autoimmune hepatic and viral causes of liver disease. She had a FibroScan at that time, which was negative. She did not follow-up for a few years after that and she is here for another follow-up today. Most recent LFTs again showed elevated transaminases. We reviewed her trend over the past few years. She denies any excessive alcohol use. She typically has a drink or 2 a couple of times a month. She denies any over the counter or herbal medications. She does not take any medication on a regular basis and has not been on any antibiotics. She does mention she has worked on losing weight over the past few years. She typically tries to eat healthy but occasionally will have fast food. She denies any known family history of liver disease. No other new complaints.[facility] Review of SystemsAdditionally reports:GENERAL: Denies fever, chills, sweats, anorexia.EYES: Denies change in vision, eye pain or photophobia.ENT: Denies ear pain or discharge, nasal obstruction or discharge.CV: Denies chest pain.RESP: Denies cough, dyspnea, excessive sputum, hemoptysis, wheezing.GI: As per HPI.: Denies urinary symptomsMSK: Denies new back pain, joint pain, joint swelling.SKIN: Denies rash, itching, dryness or lesions.NEURO: Denies seizures, syncope, tremors, vertigo.PSYCH: Denies mood problems.[facility] Physical ExamCONST: The patient appears well and in no acute distress. The patient is articulating the problem well.EYES: No icterus.ENT: Oral mucosa pink and moist.RESP: Breathing appears normal. No use of accessory muscles.GI: Abdomen nondistended.SKIN: No jaundice.PSYCH: Stable mood and affect.NEURO: No speech difficulty.[facility] Procedure DocumentationNone recordedAssessment/PlanI had a long discussion with Naheed. I reviewed her lab work over the past few years and we trended her LFTs. Her transaminases were elevated back in 2019 and they had improved somewhat in the middle and now at the most recent check they are slightly increased from baseline again. The cause of her LFT increase is unclear. She had a follow-up FibroScan today, which again shows normal numbers. She does not drink heavily and she has actually lost weight and her BMI is quite good. The cause of her LFT elevation is unclear. We talked about possible medications, herbal drugs and even personal care products that could possibly be causing this. She is going to work on ensuring that there is no such exposure to her that could cause elevated LFTs. We will recheck numbers in about a months time and if they continue to go up, we might do some repeat testing to rule out autoimmune liver disease. The patient voiced understanding and was in agreement with the plan.klp 1.Abnormal liver zpgqyrlO34.8: Abnormal levels of other serum enzymes Return to Office Patient will return to the office as needed Kayy Guadarrama APRN, HUMAN RELATIONS PROFESSOR [address] [place] [address], [phone], [facility] 06/04/2024 10:26:10 Procedures Surgical History Date Name Laterality Status Provider Name and Address Organization Details Recorded Time 5 Date of Last Pap Smear completed Not Available Health Note 10/10/2024 10:21:34 4 [place] Fibroscan completed Esau Arroyo MD [address] [place] [address], [phone], [facility] 05/31/2024 11:32:07 Imaging Results None recorded. Procedure Notes None recorded. Medical Equipment None Reported. Allergies Allergen ID Allergen Name Allergen Category Reaction Reaction Severity Criticality Documentation Date Start Date Code Code System Note Provider Name and Address Organization Details Recorded Time [id number] Product containin g penicilli n (product) medicatio n anaphylax is Not available Not available 07/25/20232014 88087 8001 SNOMED React ion: Throa t Swell ing; Comme nt: Annot ation s: PAM (ATHE NA TRANS ITION ED), KAMRAN MIN 2014 3:07P M at time of tooth absce ss, which confo unds holden ty of react ion (arslan rgy vs prima ry absce ss cause ); ; Not Available [facility] 4 06:48:23 Medications Name Sig Start Date Stop Date Status Note LastModified by Organization Details LastModified Time azithromy gerber 250 mg tablet TAKE 2 TABLETS BY MOUTH FOR 1 DAY THEN TAKE 1 TABLET BY MOUTH DAILY FOR 4 DAYS 08/02 completed Not Available Not Available Not Available ofloxacin 0.3 % eye drops INSTILL 2 DROPS INTO AFFECTED EYE 4 TIMES A DAY FOR 5 DAYS 10/17 completed Not Available Not Available Not Available valacyclo vir 1 gram tablet Take 2 tablets every 12 hours by oral route for 1 day. active Not Available Not Available No t Available phentermi ne 15 mg capsule TAKE 1 CAPSULE BY MOUTH EVERY DAY IN THE MORNING BEFORE BREAKFAS T 2024 active Patient taking med here and there Not Available Not Available Not Available phentermi ne 30 mg capsule Take 1 capsule every day by oral route. 2024 active Not Available Not Available Not Avai lable oseltamiv ir 75 mg capsule TAKE 1 CAPSULE BY MOUTH TWICE A DAY FOR 5 DAYS 10/17 completed Not Available Not Available Not Available fluticaso ne propionat e 50 mcg/actua tion nasal spray,belle pension SPRAY 2 SPRAYS INTO EACH NOSTRIL EVERY DAY active Not Available Not Available No t Available azithromy gerber 500 mg tablet TAKE 1 TABLET BY MOUTH ONCE DAILY FOR 5 DAYS 08/02 completed Not Available Not Available Not Available Vitals Date Recorded Body height Body mass index (BMI) Body weight Body temperature Heart rate Oxygen saturation Oxygen saturation in Arterial blood by Pulse oximetry Systolic blood pressure Diastolic blood pressure Provider Name and Address Organization Details Last Updated DateTime 5 165.1 cm 24.8 kg/m2 87134.2 6 g 97.2 [degF] 70 /min 99 % 99 % 116 mm[Hg] 74 mm[Hg] Yola Catarino [facility] 5 16:38:03 Date Recorded Body height Body mass index (BMI) Body weight Heart rate Oxygen saturation Oxygen saturation in Arterial blood by Pulse oximetry Systolic blood pressure Diastolic blood pressure Provider Name and Address Organization Details Last Updated DateTime 5 165.1 cm 25.9 kg/m2 78303.9 7 g 67 /min 97 % 97 % 110 mm[Hg] 64 mm[Hg] Nissa Hilda [facility] 5 18:39:57 Date Recorded Body height Body mass index (BMI) Body weight Heart rate Oxygen saturation Oxygen saturation in Arterial blood by Pulse oximetry Systolic blood pressure Diastolic blood pressure Provider Name and Address Organization Details Last Updated DateTime 165.1 cm 25.4 kg/m2 17832.9 1 g 72 /min 99 % 99 % 94 mm[Hg] 64 mm[Hg] Heide Jimenez [facility] 15:52:20 Date Recorded Body height Body mass index (BMI) Body weight Provider Name and Address Organization Details Last Updated DateTime 05/30/2024 165.1 cm 24.6 kg/m2 00908.67 g Elsa Jameson [facility] 05/30/2024 15:03:08 Social History Question Answer Notes LastModified by [employer] 401 Details LastModified Time Tobacco Smoking Status Never Smoker Not Available Health Note 05/28/2024 15:26:17 Do You Have An Advance Directive? No [email or web address] Information not available 05/28/2024 What Is Your Level Of Caffeine Consumption? Heavy [email or web address] Information not available 05/28/2024 How Many Times Per Week Do You Exercise? Less Than 1 Time Per Week [email or web address] Information not available 05/28/2024 What Was The Date Of Your Most Recent Tobacco Screening? 05/30/2024 [email or web address] Information not available 05/28/2024 What Is Your Relationship Status? [email or web address] Information not available 05/28/2024 Sex: Unknown Functional Status Question Answer Note LastModified by [employer] Details LastModified Time How many times per week do you consume alcohol? 1-2 times per week [email or web address] Information not available 05/28/2024 Do you use any illicit or recreational drugs? No [email or web address] Information not available 05/28/2024 What is your level of alcohol consumption? Occasional [email or web address] Information not available 05/28/2024 Are you currently employed? 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 None [email or web address] Information not available 05/28/2024 Mental Status None recorded. Family History Relationship Description Onset Age of this Age Resolved Age Notes LastModified by Organization Details LastModified Time Mother Malignant tumor of breast Not available 2023 10:40:46 Mother Family history of malignant neoplasm [email or web address] Not available 2023 15:26:15 Maternal Grandmother Family history of malignant neoplasm [email or web address] Not available 2023 15:26:16 Father Diabetes mellitus [email or web address] Not available 2023 15:26:16 Medical History Condition Response Diabetes N Anxiety Disorder N Bleeding Disorder N Attention-deficit Hyperactivity Disorder N High Blood Pressure N Arthritis N Hyperlipidemia N Cancer N Stroke N Thyroid Problems N Asthma N Depression N COPD N Anemia N Seizures N Heart Disease N Fibromyalgia N Osteoporosis N Kidney Disease N Gynecological History Statement/Question Response Abnormal Pap Y Date of Last Pap Smear 08/24/2024 Age at Menarche 9 Current Control Method IUD Obstetrics History GPAL:G 0 P 0 0 0 0 Immunizations Vaccine Type Date Status Note Provider Nam e and Address Organization Details Recorded Time Rho(D)-IG 09/27/2016 completed [facility] 08/02/2024 16:38:43 Rho(D)-IG 06/12/2016 completed [facility] 08/02/2024 16:38:43 COVID-19, mRNA, LNP-S, PF, 100 mcg/0.5mL dose or 50 mcg/0.25mL dose 09/12/2020 completed [facility] 08/02/2024 16:38:43 COVID-19, mRNA, LNP-S, PF, 100 mcg/0.5mL dose or 50 mcg/0.25mL dose 10/10/2020 [facility] 08/02/2024 16:38:43 Past Encounters Encounter ID Performer Location Encounter Start Date Encounter Closed Date Diagnosis/Indication Diagnosis SNOMED-CT Code Diagnosis ICD10 Code Diagnosis Note [id number] MD RAMYA Walters [address] [place] [address] [place] [id number] 05/30/2024 14:39:44 05/30/2024 15:04:55 Steatotic liver disease 260054078 K76.0 [id number] Esau Kochar, MD [facility] ([place]) [address] [place] [address] 05/30/2024 14:57:20 05/30/2024 16:36:38 Liver enzymes outside reference range 864169230 R74.8 [id number] Kayy Guadarrama APRN, HUMAN RELATIONS PROFESSOR [facility] ([place]) [address] [place] [address] 08/02/2024 16:29:50 08/02/2024 17:00:17 Influenza-like illness 86427191 J11.1 [id number] Kayy Guadarrama APRN, [facility] ([place]) [address] [place] [address] 10/17/2024 18:31:53 10/19/2024 07:21:21 Night sweats 87229944 R61 Obesity 929908088 E66.9 BMI today is 25.9, indicating overweigh t but not obese. Unable to delete this dx from this note, but entered erroneousl y. Liver enzy mes level above reference range 138642956 R74.8 Overweight 894095170 E66 .3 BMI today is 25.9, indicating overweigh t but not obese. Unable to delete this dx from this note, but entered erroneousl y. Non-toxic multinodular goiter 26375373 E04.2 Health Concerns Section Related Observation LastModified by Organization Detai ls LastModified Time None Recorded Concern Status LastModified by Organization Details LastModified Time None Recorded Advance Directives Directive N: Payers Insurance Date Sequence Insurance Name Policy Number Policy Perdomo Covered Member ID Perdomo Member ID Guarantor Name 11/06/2024 1 [employer] (O) [id number] 1 Naheed Champagne [id number] Naheed Champagne Notes Date Note Type Note Provider Name and Address Organization Details Recorded Time 05/30/2024 text/html Naheed is a pleasant 34-year-old female who has been followed in the [facility] for elevated LFTs. She was first seen in 2019 and at that time, she had lab work done to rule out autoimmune hepatic and viral causes of liver disease. She had a FibroScan at that time, which was negative. She did not follow-up for a few years after that and she is here for another follow-up today. Most recent LFTs again showed elevated transaminases. We reviewed her trend over the past few years. She denies any excessive alcohol use. She typically has a drink or 2 a couple of times a month. She denies any over the counter or herbal medications. She does not take any medication on a regular basis and has not been on any antibiotics. She does mention she has worked on losing weight over the past few years. She typically tries to eat healthy but occasionally will have fast food. She denies any known family history of liver disease. No other new complaints.vanessa Arroyo MD [address] [place] [address], [phone], [facility] 06/04/2024 10:22:13 08/02/2024 text/html Sick-both boys have influenza A (one started Tuesday, one started Tuesday). Naheed started feeling bad last night with sore throat, congestion, tired. Kayy Guadarrama APRN, HUMAN RELATIONS PROFESSOR [address] [place], [phone], [facility] 08/02/2024 16:58:54 10/17/2024 text/html Chronically elevated LFTs - Naheed had an incidental finding of elevated liver function tests on insurance blood work back in 2019. She has continued to have these elevations, has had a normal liver ultrasound and FibroScan. Autoimmune liver labs have all been normal. She has been seeing GI about every 6 months and still does not really know the source of the elevation in her liver enzymes. She is wondering if she really needs to continue going, or if there is some other workup that needs done to figure this out. Night sweats - Naheed complains of drenching night sweats every night for several years. She is wondering if this and/or any of her liver problems could be related to her thyroid. She has a thyroid goiter that has been monitored yearly on ultrasound for several years. Her TSH has always been normal.- No fevers, no daytime sweats, no unexplained fatigue Overweight - She has been on and off of phentermine. She has not had any adverse effects. She would like to try it again only at a higher dose. She is struggling to lose weight. Kayy Guadarrama, NAOMI, HUMAN RELATIONS PROFESSOR [address] [place] [address], [phone], [facility] 10/18/2024 18:16:28 OBGyn Episode No OBEpisode recorded.
--- NOTE | 2024-12-05 08:55 | PM.IMHP ---
H&P: HPI History of Present Illness Date/Time: 12/05/24 08:55 Chief Complaint: Urinary incontinence Narrative: 34 y/o with stress urinary incontinence. Review of Systems Review of Systems: All systems reviewed & are unremarkable except as noted in HPI and below PMFSH Social History Social History Smoking status: Never smoker Alcohol intake: current Drinks per week: 1 Alcohol use details: weekends only Substance use: never Living arrangements: with family Spiritual care concerns: No Meds Home Medications and Allergies Home Medications ?Medication ?Instructions ?Recorded ?Confirmed ?Type No Home Medications 11/28/24 11/28/24 History Allergies Allergy/AdvReac Type Severity Reaction Status Date / Time Penicillins Allergy Unknown facial Verified 12/05/24 10:45 swelling Exam Const: Orientation/consciousness: patient oriented x3 Other: Well-developed, well-nourished female in no acute distress. Neck: Thyroid: thyroid normal Lymphatic: no lymphadenopathy noted (in neck, axilla or inguinal nodes) Resp: Effort & Inspection: normal respiratory effort Auscultation: clear to auscultation bilaterally Cardio: Rate: regular rate Rhythm: regular rhythm Heart sounds: S1 normal heart sound present and S2 normal heart sound present GI: Other: ABD: Soft, nontender, nondistended. No guarding or rebound tenderness. No hepatosplenomegaly. : General: Yes no CVA tenderness Other: External genitalia: normal female hair distribution, without lesion. Urethral meatus: no lesion, non prolapsed. Hypermobility noted. Bladder: no mass, nontender Vagina: well-estrogenized, without lesion or discharge. No cystocele or rectocele. Cervix: no lesion or discharge. Uterus: small, anteverted, freely mobile, nontender Adnexa: no mass or tenderness. Anus/perineum: no lesions, nontender Back/Spine/Pelvis: Back: no CVA tenderness Skin: General skin exam: normal color and no rashes or lesions noted Neuro: General: patient oriented x3 Extrem: Other: Extremities: nontender with no edema Psych: Mental Status: mental status grossly normal Affect: normal affect Assessment and Plan Assessment and plan (1) CHANEL (stress urinary incontinence, female): Code(s): N39.3 - Stress incontinence (female) (male) Status: Acute Assessment and Plan: A: Stress urinary incontinence. P: She is interested in surgical management. I offered tension free vaginal taping with cystoscopy. She understands risks of surgery to include risks of anesthesia, risks of pain, infection, bleeding, blood products, thromboembolic phenomena and damage to adjacent structures such as bowel, bladder, ureters, blood vessels and nerves. She understands risks of urinary retention, as well as risks of incomplete cure of her problem. She understands all these risks and elects to proceed with surgery.
[2024-12-05 10:30] VITALS: BP 128/81; PULSE 61; RESP 16; TEMP 36.4; O2SAT 100
[2024-12-05] MEDS: LACTATED RINGERS 1,000 ML 30 ML IV CONT (10:30)
--- NOTE | 2024-12-05 11:28 | P.PNAN_ITS ---
Anes - Initial Pre Proc Eval Procedure: Operation Date: 12/05/24 12:00 Proposed Procedures p Tension Free Vaginal Taping - Cornel Anne MD s Cystoscopy - Cornel Anne MD Date/Time: 12/05/24 11:28 Surgeon: Cornel Anne MD Pre Op Diagnosis: jessica Patient Data Age: 34 Gender: F Height: 1.63 m Weight: 74.1 kg Last Vital Signs Temp 36.4 C L 12/05/24 10:30 Pulse 61 12/05/24 10:30 Resp 16 12/05/24 10:30 BP 128/81 12/05/24 10:30 Pulse Ox 100 12/05/24 10:30 O2 Del Method Room Air 12/05/24 10:30 Allergies Allergy/AdvReac Type Severity Reaction Status Date / Time Penicillins Allergy Unknown facial Verified 12/05/24 10:45 swelling Home Medications ?Medication ?Instructions ?Recorded ?Confirmed ?Type No Home Medications 11/28/24 11/28/24 History Laboratory Tests 12/05/24 10:26 Blood Type Pending Antibody Screen Pending Patient hx anesthesia problems: none Family hx anesthesia problems: none Results Review: All pre-operative results and documents have been reviewed as part of the pre- operative evaluation. [facility] Social History Social History Smoking status: Never smoker Alcohol intake: current Drinks per week: 1 Alcohol use details: weekends only Substance use: never Living arrangements: with family Spiritual care concerns: No Anes - Eval Final PreProcedure Day of Procedure 12/05/24 11:28 Patient weight: overweight Heart: regular rate and rhythm Lungs: clear to auscultation Airway: Mallampati scale class II Neurological: alert and oriented Last oral intake: >/= 8 hours ASA classification: II Emergent: no Anesthetic plan: proceed Anesthesia type and monitoring: general LMA and standard monitoring Results Review: All pre-operative results and documents have been reviewed as part of the pre- operative evaluation. Informed Consent: The patient's anesthetic plan and its attendant risks and benefits were discussed with the patient/family/POA. Questions were solicited and answers provided to the satisfaction of the patient/family/POA.
--- NOTE | 2024-12-05 12:09 | WPDHPUPDATE1 ---
History and Physical Update Update Date/Time: 12/05/24 12:09 History and Physical has been reviewed, including an updated exam of the patient. There are NO changes in the patient's condition. Risks, benefits, and alternatives have been discussed and questions answered. Patient agrees to proceed with procedure.
[2024-12-05] MEDS: LIDOCAINE 1% LOCAL INJ 20 ML VIAL 10 ML INFILTRATE (12:22)
[2024-12-05] MEDS: ceFAZolin 2 GM/D5W 50 ML 2 GM/50 ML BAG IVPB (12:22)
--- NOTE | 2024-12-05 13:08 | W.PM.PROC2 ---
Procedure Note - Detailed Date of Procedure 12/05/24 Pre-op Diagnosis Stress urinary incontinence Post-op Diagnosis Same Procedure Performed Tension free vaginal taping with cystoscopy Surgeon Cornel Anne MD Anesthesia MAC Findings Perforation of the bladder with left sided TVT needle. Description of Procedure The patient was taken to the operating room where she was prepared and draped in the usual sterile fashion in the dorsal lithotomy position. She received IV Ancef preoperatively. The bladder was drained with a foster catheter. The vaginal epithelium underlying the midurethra was elevated with Allis clamps and incised. Dissection was undertaken laterally. The bladder guide was advanced. The bladder was reflected to the patient's left, and the right sided TVT needle was passed. The bladder was reflected to her right, and the left TVT needle was placed. The catheter was withdrawn and cystoscopy was performed with sterile saline as a distension medium. The left sided TVT needle was seen to have perforated the bladder. The bladder was drained again and the left needle was redirected. Cystoscopy confirmed proper placement of both TVT needles. The bladder was drained again with the foster catheter. The TVT mesh was advanced into place using a Aguirre scissors for spacing. The vaginal epithelium was reapproximated with a single figure of eight suture of 0-Chromic. Hemostasis was excellent. The TVT exit sites were closed with Dermabond. Hemostasis was excellent. Sponge, lap, needle and instrument counts were correct. The patient was awakened and taken to the recovery room in stable condition. I was present and scrubbed through the entire procedure. In the recovery room I reviewed the bladder perforation with the patient. We plan to leave the foster in place until next week and remove it in the office. Implants TVT mesh Estimated Blood Loss 30 Drains Yes (Foster) Packing No Pathology None sent Complications Other complications (Perforation of bladder with TVT needle.) Condition Stable Disposition PACU
[2024-12-05 13:10] VITALS: BP 95/64; PULSE 68; RESP 12; TEMP 36.6; O2SAT 100
[2024-12-05 13:40] VITALS: BP 117/57; PULSE 64
[2024-12-05] MEDS: oxyCODONE HCL (*CRX) 5 MG TAB IR PO (13:55)
[2024-12-05 14:10] VITALS: BP 108/73; PULSE 59
== END 2024-12-05 14:35 | disposition home or self-care (01) ==
PROVIDERS: Visit Provider Obstetrics & Gynecology
PROC: 0TSD0ZZ Reposition Urethra, Open Approach (ICD-10-PCS; CPT 57288; principal; 2024-12-05 12:00)
PROC: 0TJB8ZZ Inspection of Bladder, Via Natural or Artificial Opening Endoscopic (ICD-10-PCS; CPT 52000; 2024-12-05 12:00)
DX: N39.3 Stress incontinence (female) (male) (principal)
CPT/HCPCS: 57288; 36415; 86850; 86900; 86901; A9270; C1771; J0690; J2003; J2250; J2405; J2704; J3010; J7120